=== PATIENT | female | born 1955 | race Caucasian/White ===

== ENCOUNTER 2020-11-23 04:16 | Day surgery (SDC) | payer OTHER ==
[2020-11-18 14:03] VITALS: BMI 28.8
[2020-11-23] MEDS ORDERED: DEXAMETHASONE SOD PHOSPHATE 4 MG/1 ML VIAL ONE (08:56)
[2020-11-23] MEDS ORDERED: LIDOCAINE HCL/PF 2% SDV 5ML VIAL ONE (08:56)
[2020-11-23] MEDS ORDERED: MIDAZOLAM HCL 2 MG/2 ML SINGLE DOSE VIAL ONE (08:56)
[2020-11-23] MEDS ORDERED: PROPOFOL 20 ML ONE (08:56)
[2020-11-23] MEDS ORDERED: ONDANSETRON 4 MG/2 ML VIAL ONE (08:56)
[2020-11-23] MEDS ORDERED: ONDANSETRON 4 MG/2 ML VIAL IVPUSH PRN ×2 (09:47→10:32)
[2020-11-23] MEDS ORDERED: oxyCODONE HCL 5 MG TABLET PO PRN ×2 (09:47→10:32)
[2020-11-23] MEDS ORDERED: LACTATED RINGERS SOLUTION 1,000 ML IV SCH (10:00)
[2020-11-23] MEDS ORDERED: IBUPROFEN 600 MG TABLET (FP) PO PRN (10:32)
[2020-11-23] MEDS ORDERED: IBUPROFEN 800 MG/8 ML IJ IVPB PRN (10:32)
[2020-11-23] MEDS ORDERED: ELECTROLYTE-148 SOLN 1,000 ML IV SCH (10:45)
[2020-11-23] MEDS ORDERED: IBUPROFEN 800 MG/8 ML IJ IVPB ONE (10:47)
[2020-11-23 12:34] VITALS: TEMP 97.8
[2020-11-23 13:54] VITALS: BP 132/73; PULSE 86
== END 2020-11-23 13:45 | disposition home or self-care (01) ==
LOC: JASU-SURG 04:16
PROVIDERS: ATTEND Obstetrics & Gynecology
PROC: 0UDB8ZX Extraction of Endometrium, Via Natural or Artificial Opening Endoscopic, Diagnostic (ICD-10-PCS; principal; 2020-11-23 09:30)
DX: N88.2 Stricture and stenosis of cervix uteri (principal); Z78.0 Asymptomatic menopausal state; Z53.8 Procedure and treatment not carried out for other reasons
CPT/HCPCS: 88305-TC; 94760